=== PATIENT | female | born 1945 | race Caucasian/White ===

== ENCOUNTER 2016-10-11 12:27 | Emergency (ER) | payer MEDICAID ==
[~2016-10-11] VITALS: Ht 154.9 cm; Wt 61.5 kg
[~2016-10-11 12:27] MED LIST: ASPI81TA3; BENA20TA48 PO; CALC-68; HYD25 PO; IBUP400T22 PO; LORA-932; METH10TA5 PO; METO50TA16 PO; PRAV20TA63 PO; TRAM50TA2 PO
[2016-10-11 12:43] VITALS: Ht 154.9 cm; Wt 61.5 kg
[2016-10-11] MEDS ORDERED: SOD CHLORIDE 0.9% 1,000 ML IV STA (13:27)
[2016-10-11] MEDS ORDERED: ENALAPRILAT 1.25 MG INJ IV ONE (13:30)
[2016-10-11] MEDS ORDERED: AMLODIPINE 5 MG TAB PO ONE (13:30)
--- NOTE | 2016-10-11 14:16 | ERD ---
ER Documentation Chief Complaint Date/Time DATE: 10/11/16 TIME: 14:08 Chief Complaint INCREASED BP HPI 71-year-old woman with a history of hypertension brought in by EMS after referral from PMD for recent increased blood pressure despite using her antihypertensives as prescribed. She uses 2.5 mg amlodipine daily and her physician recommended increasing the dose to 10 mg daily, although because today 's EKG at the facility revealed a right bundle branch block he sent her here to rule out other end-organ pathology. An EKG performed 2 years ago was unremarkable. Patient is currently asymptomatic and was also asymptomatic at the doctor's office, per her primary care physician who I spoke to. She denies chest pain or shortness of breath, no fevers or chills, no dysuria or abdominal pain, no vomiting or diarrhea. Patient was transported here by EMS without further complications. ROS All systems reviewed and are negative except as per history of present illness. Medications Home Meds Active Scripts Amlodipine Besylate* (Amlodipine Besylate*) 10 Mg Tablet, 10 MG PO DAILY, #30 TAB Prov:EDWINA KHANNA MD 10/11/16 Reported Medications Lisinopril* (Lisinopril*) 40 Mg Tablet, 40 MG PO DAILY, #30 TAB 10/11/16 Amlodipine Besylate* (Amlodipine Besylate*) 2.5 Mg Tablet, 2.5 MG PO DAILY, #30 TAB 10/11/16 Alendronate Sodium* (Fosamax*) 70 Mg Tablet, 70 MG PO Q7D, #4 TAB 10/11/16 Hydrochlorothiazide* (Hydrochlorothiazide*) 25 Mg Tab, 25 MG PO DAILY, #30 TAB 05/15/15 Pravastatin Sodium* (Pravastatin Sodium*) 20 Mg Tablet, 20 MG PO HS, TAB 05/15/15 Metoprolol Succinate* (Toprol XL*) 50 Mg Tab.er.24h, 50 MG PO BID, #30 TAB 05/15/15 Aspirin (Aspirin) 81 Mg Chew 04/27/14 Discontinued Reported Medications Methimazole* (Methimazole*) 10 Mg Tablet, 20 MG PO DAILY, TAB 05/15/15 Benazepril Hcl* (Benazepril Hcl*) 20 Mg Tablet, 20 MG PO DAILY, #30 TAB 05/15/15 Calcium Carb-Vit D3-Minerals (Calcium + D & Minerals Chew) 1 Each Tab.chew 04/27/14 Loratadine (Allergy) 10 Mg Tablet 04/27/14 Discontinued Scripts Tramadol HCl (Tramadol HCl) 50 Mg Tablet, 50 MG PO Q4 Y for PAIN, #20 TAB Prov:JOSE UGALDE MD 04/28/15 Ibuprofen* (Motrin*) 400 Mg Tab, 400 MG PO Q6H Y for PAIN, #20 TAB Prov:JOSE UGALDE MD 04/28/15 Allergies Allergies: Coded Allergies: Penicillins (Verified Allergy, Unknown, 10/11/16) PMhx/Soc Hypertension, gastritis History of Surgery: Yes (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) Anesthesia Reaction: No Hx Neurological Disorder: No Hx Respiratory Disorders: No Hx Cardiac Disorders: Yes (htn, high cholesterol) Hx Psychiatric Problems: No Hx Miscellaneous Medical Probl: Yes (thyroid) Hx Alcohol Use: No Hx Substance Use: No Hx Tobacco Use: No FmHx Family History: diabetes Physical Exam Vitals Vital Signs Date Time Temp Pulse Resp B/P Pulse Ox O2 Delivery O2 Flow Rate FiO2 10/11/16 15:37 55 16 166/61 100 Room Air 10/11/16 12:43 98.0 63 18 226/88 98 Physical Exam GENERAL: Well-developed, well-nourished, well-hydrated, in no apparent distress , looks nontoxic in appearance HEENT: Moist mucous membranes, pink conjunctiva, no cervical spine tenderness or step-off deformities, no goiter, no jaundice or icterus, extraocular movements intact without pain. No submandibular induration, and no pharyngeal erythema NEURO: Alert and oriented 3, cranial nerves II through XII intact bilaterally, pupils equal round reactive to light, no focal deficits or facial asymmetry, sensation intact distally Strength 5/5 in upper and lower extremities bilaterally CARDIAC: Regular rate and rhythm, no murmurs rubs or gallops LUNGS: Clear bilaterally no wheezing crackles or stridor ABDOMEN: Soft nontender, no guarding, no rigidity, no rebound, no psoas sign no obturator sign. Normoactive bowel sounds SKIN: Warm and dry to touch, no abrasions, contusions, or hematomas, no lacerations, no ecchymosis, no target lesions, and without ulcers EXTREMITIES: No clubbing cyanosis or edema, calves are bilaterally symmetrical, no Homans sign, no popliteal cord sign. Distal pulses equal and bilateral PSYCH: Normal affect without agitation or irritability Result Diagram: 10/11/16 1503 10/11/16 1503 Results 24 hrs Laboratory Tests Test 10/11/16 15:03 White Blood Count 5.510^3/ul Red Blood Count 4.4110^6/ul Hemoglobin 13.5g/dl Hematocrit 37.1% Mean Corpuscular Volume 84.1fl Mean Corpuscular Hemoglobin 30.6pg Mean Corpuscular Hemoglobin Concent 36.4g/dl Red Cell Distribution Width 11.6% Platelet Count 67534^3/UL Mean Platelet Volume 10.0fl Neutrophils % 58.3% Lymphocytes % 29.0% Monocytes % 10.3% Eosinophils % 1.8% Basophils % 0.4% Nucleated Red Blood Cells % 0.0/100WBC Neutrophils # 3.210^3/ul Lymphocytes # 1.610^3/ul Monocytes # 0.610^3/ul Eosinophils # 0.110^3/ul Basophils # 0.010^3/ul Nucleated Red Blood Cells # 0.010^3/ul Urine Color LT. YELLOW Urine Clarity CLEAR Urine pH 7.5 Urine Specific [place] 1.010 Urine Ketones NEGATIVE Urine Nitrite NEGATIVE Urine Bilirubin NEGATIVE Urine Urobilinogen 0.2 E.U./dL Urine Leukocyte Esterase TRACE Urine Microscopic RBC 5-10/HPF Urine Microscopic WBC 0-2/HPF Urine Transitional Epithelial Cells OCCASIONAL Urine Hemoglobin 1+ Urine Glucose NEGATIVE% Urine Total Protein NEGATIVE Sodium Level 135mmol/L Potassium Level 4.0mmol/L Chloride Level 96mmol/L Carbon Dioxide Level 30mmol/L Anion Gap 13 Blood Urea Nitrogen 13mg/dl Creatinine 0.56mg/dl Glucose Level 108mg/dl Calcium Level 9.3mg/dl Total Bilirubin 0.3mg/dl Direct Bilirubin 0.00mg/dl Indirect Bilirubin 0.3mg/dl Aspartate Amino Transf (AST/SGOT) 35IU/L Alanine Aminotransferase (ALT/SGPT) 42IU/L Alkaline Phosphatase 95IU/L Troponin I < 0.012ng/ml Total Protein 7.9g/dl Albumin 4.9g/dl Globulin 3.00g/dl Albumin/Globulin Ratio 1.63 Lipase 116U/L Current Medications Medications (Trade) Dose Ordered Sig/Yola Route PRN Reason Start Time Stop Time Status Last Admin Dose Admin Sodium Chloride (NS) 1,000 ml @ 1,000 mls/hr Q1H STAT IV 10/11/16 13:27 10/11/16 14:26 DC 10/11/16 15:24 Enalaprilat (Vasotec Iv) 1.25 mg ONCE ONCE IV 10/11/16 13:30 10/11/16 13:31 DC 10/11/16 15:25 Amlodipine Besylate (Norvasc) 5 mg ONCE ONCE PO 10/11/16 13:30 10/11/16 13:31 DC 10/11/16 15:30 Procedures/MDM IV line was established patient was placed on telemetry monitor rhythm strip revealed a sinus rhythm at about 90 bpm with upright P and T waves. Patient was afebrile. EKG performed at the facility revealed a sinus bradycardia at 53 bpm, normal axis with a right bundle branch block and a QRS duration of 142 ms there is also first-degree atrial ventricular block with a SC interval 208 ms. EKG performed here in our ER reveals a sinus bradycardia 58 bpm, normal axis, with temporary right bundle branch block which converts to a narrow complex rhythm, no concerning ST elevations or depressions noted. EKG #2 performed about 3 hours after the first ED EKG revealed a sinus bradycardia 57 bpm, normal axis, and a right bundle branch block with a first- degree atrial ventricular block. No concerning ST elevations or depressions noted. Unremarkable. One view chest x-ray performed, read by me revealed sternotomy wires, no acute infiltrates, no pneumothorax and a normal mediastinum. Patient was extremely hypertensive initially and treated here with 1 L normal saline intravenously, enalapril 1.25 mg IV, and amlodipine 5 mg p.o. with good effect. CBC was unremarkable, electrolytes normal, liver function tests normal, troponin was negative. Urine analysis was negative for infection. Critical Care: Time: 32 minutes, this was time separate from other procedures. Treatments/Evaluations: Close monitoring and treatment of unstable vital signs, cardiorespiratory, and neurologic status, while maintaining tight balance of fluid, respiratory, and cardiac interventions. Patient is asymptomatic and ED workup was unremarkable. She has no signs, symptoms, or lab findings to support endorgan damage. She will be managed as an outpatient by her PMD who has close follow-up with her and I will increase her amlodipine to 10 mg daily. Differential diagnoses considered, included but not limited to acute coronary syndrome, pulmonary embolism, aortic dissection, abdominal aortic aneurysm, sepsis, stroke, meningitis, encephalitis, pneumonia, appendicitis, cholecystitis , bowel obstruction, pyelonephritis, nephrolithiasis, cystitis, as well as metabolic, hematologic, and electrolyte abnormalities. As well as abscess, cellulitis, fractures, and dislocations. Patient feels much better at this time, and vital signs are normal, symptoms have improved. I did give strict instructions to return to the ED if symptoms continue or worsen, patient will otherwise follow-up with primary care physician. Patient understood instructions and agreed to plan. Disclaimer: Inadvertent spelling or grammatical errors are likely due to EHR/ dictation software use and do not reflect on the overall quality of patient care. Departure Diagnosis: Primary Impression: Hypertensive urgency Additional Impression: Right bundle branch block Condition: Good EDWINA KHANNA MD Oct 11, 2016 14:16
--- NOTE | 2016-10-11 15:03 | RADRPT ---
PROCEDURE: XR Chest. CLINICAL INDICATION: Abdominal Pain TECHNIQUE: Single frontal view of the chest was obtained. COMPARISON: Chest x-ray from 05/05/2014 FINDINGS: Sternotomy wires and clips consistent with CABG are again noted. There is stable mild cardiomegaly. The aortic arch is calcified. The lungs are clear. There is no significant pleural effusion or pneumothorax. IMPRESSION: Stable mild cardiomegaly status post CABG. Aortic atherosclerosis. RPTAT: EE Physician Sai Date Time Electronically viewed and signed by Giuseppe Prasad Physician on 10/11/2016 15:03 /
[2016-10-11] MEDS ORDERED: ALEN70TA30 PO (15:04)
[2016-10-11] MEDS ORDERED: AMLO2.5T78 PO (15:04)
[2016-10-11] MEDS ORDERED: LISI40TA9 PO (15:05)
[2016-10-11 15:12] LABS: ADD SCAN DIFF NO
[2016-10-11 15:16] LABS: BASOPHILS % 0.4 % (0.0-2.0); EOSINOPHILS # 0.1 10^3/ul (0.0-0.5); EOSINOPHILS % 1.8 % (0.0-7.0); HEMATOCRIT 37.1 % (37.0-47.0); HEMOGLOBIN 13.5 g/dl (12.0-16.0); LYMPHOCYTES # 1.6 10^3/ul (0.8-2.9); MEAN CORPUSCULAR HEMOGLOBIN 30.6 pg (29.0-33.0); MEAN CORPUSCULAR HGB CONC 36.4 g/dl (32.0-37.0); MEAN CORPUSCULAR VOLUME 84.1 fl (82.0-101.0); MONOCYTE # 0.6 10^3/ul (0.3-0.9); MONOCYTES % 10.3 % (0.0-11.0); NEUTROPHIL # 3.2 10^3/ul (1.6-7.5); NEUTROPHILS % 58.3 % (39.0-77.0); PLATELET COUNT 293 10^3/UL (140-415); RED BLOOD COUNT 4.41 10^6/ul (4.20-5.40); RED CELL DISTRIBUTION WIDTH 11.6 % (11.5-14.5); WHITE BLOOD COUNT 5.5 10^3/ul (4.8-10.8)
[2016-10-11 15:28] LABS: ADD UMIC YES; URINE BILIRUBIN (Dip) NEGATIVE (NEGATIVE); URINE BLOOD (Dip) 1+ (NEGATIVE); URINE COLOR LT. YELLOW (YELLOW); URINE GLUCOSE (Dip) NEGATIVE (NEGATIVE); URINE KETONES (Dip) NEGATIVE (NEGATIVE); URINE LEUKOCYTE ESTERASE (Dip) TRACE (NEGATIVE); URINE NITRITE (Dip) NEGATIVE (NEGATIVE); URINE TOTAL PROTEIN (Dip) NEGATIVE (NEGATIVE); URINE UROBILINOGEN (Dip) 0.2 E.U./dL (0.1-1.0)
[2016-10-11 15:32] LABS: ALANINE AMINOTRANSFERASE 42 IU/L (13-69); ALBUMIN 4.9 g/dl (3.3-4.9); ALBUMIN/GLOBULIN RATIO 1.63; ALKALINE PHOSPHATASE 95 IU/L (42-121); ANION GAP 13 (8-16); ASPARTATE AMINO TRANSFERASE 35 IU/L (15-46); BILIRUBIN,INDIRECT 0.3 mg/dl (0-1.1); BILIRUBIN,TOTAL 0.3 mg/dl (0.2-1.3); BLOOD UREA NITROGEN 13 mg/dl (7-20); CALCIUM 9.3 mg/dl (8.4-10.2); CARBON DIOXIDE 30 mmol/L (21-31); CHLORIDE 96 mmol/L (97-110); CREATININE 0.56 mg/dl (0.44-1.00); GLUCOSE 108 mg/dl (70-220); SODIUM 135 mmol/L (135-144); TOTAL PROTEIN 7.9 g/dl (6.1-8.1)
[2016-10-11 15:37] VITALS: BP 166/61; PULSE 55; RESP 16
[2016-10-11 15:46] LABS: TROPONIN-I < 0.012 ng/ml (0.00-0.12)
[2016-10-11 15:55] LABS: TRANSITIONAL EPI CELLS,URINE OCCASIONAL
[2016-10-11] MEDS ORDERED: AMLO-147 PO (16:17)
== END 2016-10-11 16:45 | disposition home or self-care (01) ==
LOC: E/R 12:27
DX: I16.0 Hypertensive urgency (principal); I45.10 Unspecified right bundle-branch block; I25.810 Atherosclerosis of coronary artery bypass graft(s) without angina pectoris; Z79.82 Long term (current) use of aspirin
CPT/HCPCS: 36415; 71010; 80053; 81001; 83690; 84484; 85025; 93005; 96361; 96374; J7030; Z7502; Z7610

== ENCOUNTER 2018-03-06 09:45 | Emergency (ER) | END 2018-03-06 14:12 | disposition home or self-care (01) ==

== ENCOUNTER 2018-03-08 09:24 | Emergency (ER) | END 2018-03-08 10:35 | disposition home or self-care (01) ==

== ENCOUNTER 2018-03-22 11:42 | Emergency (ER) | END 2018-03-22 12:25 | disposition home or self-care (01) ==

== ENCOUNTER 2018-08-27 12:21 | Emergency (ER) | payer MEDICAID ==
[~2018-08-27] VITALS: Wt 60.0 kg
[~2018-08-27 12:21] MED LIST changes: +ACET325T33 PO; +ALEN70TA5 PO; +AMLO-147 PO; +AMLO2.5T78 PO; +ASPI-831; -ASPI81TA3; +BEN25 PO; -BENA20TA48 PO; -CALC-68; +CETI5TAB8 PO; +ELIM TOP; -HYD25 PO; +HYDR-3029 PO; +HYDR25TA6 PO; -IBUP400T22 PO; +LISI40TA3 PO; -LORA-932; +LORA10CA9 PO; +MED4DP PO; -METH10TA5 PO; +METO-319 PO; -METO50TA16 PO; -TRAM50TA2 PO
[2018-08-27 12:23] VITALS: BP 156/70; PULSE 62; RESP 18
--- NOTE | 2018-08-27 12:58 | ERD ---
ER Documentation Chief Complaint Chief Complaint COUGH X 10 DAYS HPI 73-year-old female, presents to the emergency department, complaining of 10 days with worsening of cough, associated with productive greenish sputum, subjective fever and general malaise. The patient has been taking [id number] medication without improvement of the symptoms. The patient denies chest pain, no shortness of breath, no leg edema. ROS All systems reviewed and are negative except as per history of present illness. Medications Home Meds Active Scripts Inhaler, Assist Devices (Compact Space Chamber) 1 Each Spacer, EACH MC, #1 Prov:EVELYN HARPER MD 08/27/18 Albuterol Sulfate* (Proair HFA*) 8.5 Gm Hfa.aer.ad, 2 PUFF INH Q4, #1 INHALER Prov:EVELYN HARPER MD 08/27/18 Guaifenesin/Codeine Phosphate (Codeine-Guaifen 10-100 mg/5 ml) 120 Ml Liquid, 5 ML PO QHS PRN for COUGH for 5 Days, #60 ML Prov:EVELYN HARPER MD 08/27/18 Doxycycline Hyclate* (Doxycycline Hyclate*) 100 Mg Tablet.dr, 100 MG PO BID for 7 Days, TAB Prov:EVELYN HARPER MD 08/27/18 Acetaminophen* (Tylenol*) 325 Mg Tablet, 2 TAB PO Q8 PRN for PAIN AND OR ELEVATED TEMP, #20 TAB Prov:EVELYN HARPER MD 06/21/18 Hydroxyzine Hcl* (Hydroxyzine Hcl*) 10 Mg Tablet, 10 MG PO Q6H PRN for ITCHING, #30 TAB Prov:SB ROJAS PA-C 03/22/18 Permethrin* (Elimite*) 5% Cr, 1 APPLIC TOP ONCE, #1 TUB Prov:SB ROJAS PA-C 03/22/18 Diphenhydramine Hcl* (Benadryl*) 25 Mg Cap, 25 MG PO Q6 PRN for ITCHING/RASH, # 30 TAB Prov:MAN REEVES 03/08/18 Loratadine (Loratadine) 10 Mg Capsule, 10 MG PO DAILY, #30 CAP Prov:PASILAMAN MARX F 03/08/18 Methylprednisolone* (Medrol* DOSE PACK) 4 Mg/Dose-Pack Tab.ds.pk, 4 MG PO . DIRECTED, #1 PACKET Prov:MAN REEVES 03/08/18 Permethrin* (Elimite*) 5% Cr, 1 APPLIC TOP ONCE, #2 TUB Prov:MAN REEVES 03/08/18 Cetirizine Hcl* (Cetirizine Hcl*) 5 Mg Tab.chew, 5 MG PO DAILY PRN for ITCHING, #30 TAB Prov:STEVENPANCHO 03/06/18 Amlodipine Besylate* (Amlodipine Besylate*) 10 Mg Tablet, 10 MG PO DAILY, #30 TAB Prov:EDWINA KHANNA MD 10/11/16 Reported Medications Lisinopril* (Lisinopril*) 40 Mg Tablet, 40 MG PO DAILY, #30 TAB 10/11/16 Amlodipine Besylate* (Amlodipine Besylate*) 2.5 Mg Tablet, 2.5 MG PO DAILY, #30 TAB 10/11/16 Alendronate Sodium* (Fosamax*) 70 Mg Tablet, 70 MG PO Q7D, #4 TAB 10/11/16 Hydrochlorothiazide* (Hydrochlorothiazide*) 25 Mg Tab, 25 MG PO DAILY, #30 TAB 05/15/15 Pravastatin Sodium* (Pravastatin Sodium*) 20 Mg Tablet, 20 MG PO HS, TAB 05/15/15 Metoprolol Succinate* (Toprol XL*) 50 Mg Tab.er.24h, 50 MG PO BID, #30 TAB 05/15/15 Aspirin (Aspirin) 81 Mg Chew 04/27/14 Allergies Allergies: Coded Allergies: Penicillins (Verified Allergy, Unknown, 03/22/18) PMhx/Soc History of Surgery: Yes (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) Anesthesia Reaction: No Hx Neurological Disorder: Yes (cva) Hx Respiratory Disorders: No Hx Cardiac Disorders: Yes (htn, high cholesterol) Hx Psychiatric Problems: No Hx Miscellaneous Medical Probl: Yes (thyroid) Hx Alcohol Use: No Hx Substance Use: No Hx Tobacco Use: No FmHx Family History: diabetes; No coronary disease Physical Exam Vitals Vital Signs Date Temp Pulse Resp B/P (MAP) Pulse Ox O2 O2 Flow FiO2 Time Delivery Rate 08/27/18 97.5 62 18 156/70 99 12:23 (98) Physical Exam Const: Mild distress due to cough Head: Atraumatic Eyes: Normal Conjunctiva ENT: Erythematous oropharynx, normal External Ears, Nose and Mouth. Neck: Full range of motion. No meningismus. Resp: Rhonchi to auscultation bilaterally Cardio: Regular rate and rhythm, no murmurs Abd: Soft, non tender, non distended. Normal bowel sounds Skin: No petechiae or rashes Back: No midline or flank tenderness Ext: No cyanosis, or edema Neur: Awake and alert Psych: Normal Mood and Affect Procedures/MDM At the time of discharge, patient with nontoxic appearance, vital signs stable, no respiratory distress. Differential diagnosis include but not limited to: upper vs lower respiratory infection bacterial/viral/fungal. Asthma, COPD, pneumonitis, allergies, GERD. Less likely pulmonary embolism, cardiac related or malignancy, but still is a possibility. Physical examination and clinical presentation consistent most likely with viral infection with early superimposed bacterial infection. During the ED course the patient remained stable, no new complaints. Treatment options and clinical impression discussed with the patient who agrees with management. The patient is stable to be treated outpatient and will be discharged home. Some side effects of prescribed medications (headache, rash, nausea, vomiting, diarrhea, interactions with other medications) were reviewed. The patient needs to follow up with the primary care provider in the next 48h. If symptoms persist, worsen or new symptoms develop, then patient should return to the ED immediately. Disclaimer: Inadvertent spelling and grammatical errors are likely due to EHR/dictation software use and do not reflect on the overall quality of patient care. Also, please note that the electronic time recorded on this note does not necessarily reflect the actual time of the patient encounter. Departure Diagnosis: Primary Impression: Abnormal respiratory sounds Additional Impression: Cough Condition: Stable Additional Instructions: Muchas yojana por [facility] para james servicio. Esperamos que en jaems visita a la stalin de emergencia james problema medico haya sido solucionado y que se sienta mucho mejor. Para estar seguros que james mejoria sigue en proceso, le pedimos el favor de hacer ozzie gaudencio de seguimiento medico con james doctor primario en los proximos 2-4 han. Lleve con usted estos documentos y las medicinas recetadas. Si malina sintomas empeoran, NO SE ESPERE, por favor regrese a stalin de emergencia INMEDIATAMENTE. En bird que usted no tenga un mdico de atencin primaria: Llame al mdico o clnica comunitaria de referencia que aparece abajo juliet las horas de consultorio para hacer ozzie gaudencio para que le vean. CLINICAS: [facility] [phone] [facility] [phone] [id number] [facility] [id number] [facility] [phone] [facility] [phone] [id number] [facility]. [phone] EVELYN EPPS MD Aug 27, 2018 12:58
[2018-08-27] MEDS ORDERED: DOXY100T20 PO (13:35)
[2018-08-27] MEDS ORDERED: ALBU8.5H8 INH (13:35)
[2018-08-27] MEDS ORDERED: GUAI120L41 PO (13:35)
[2018-08-27] MEDS ORDERED: INHA-3 MC (13:35)
== END 2018-08-27 13:59 | disposition home or self-care (01) ==
LOC: FTE 12:21
DX: R09.89 Other specified symptoms and signs involving the circulatory and respiratory systems (principal); I10 Essential (primary) hypertension; Z79.82 Long term (current) use of aspirin; Z86.73 Personal history of transient ischemic attack (TIA), and cerebral infarction without residual deficits
CPT/HCPCS: 99283

== ENCOUNTER 2018-09-26 10:34 | Emergency (ER) | payer MEDICAID ==
[~2018-09-26] VITALS: Ht 144.8 cm; Wt 60.6 kg
[~2018-09-26 10:34] MED LIST changes: +ALBU8.5H8 INH; +DOXY100T20 PO; +GUAI120L41 PO; +INHA-3 MC
[2018-09-26 10:38] VITALS: BP 118/58; PULSE 58; RESP 19; Ht 144.8 cm; Wt 60.6 kg
[2018-09-26] MEDS ORDERED: KETOROLAC 60 MG INJ IM STA (11:02)
[2018-09-26] MEDS ORDERED: DEXAMETHASONE 10 MG/ML 1 ML INJ IM ONE (11:30)
[2018-09-26] MEDS ORDERED: TRAM50TA2 PO (12:24)
[2018-09-26] MEDS ORDERED: NAPR-985 PO (12:24)
[2018-09-26] MEDS ORDERED: MED4DP PO (12:24)
--- NOTE | 2018-09-26 12:56 | ERD ---
ER Documentation Chief Complaint Chief Complaint BACK PAIN X 15 DAYS HPI 73-year-old female presents with back pain x15 days. Denies any acute traumatic injuries. Patient states that she has sharp stabbing pain running down bilateral posterior legs. Denies any numbness or tingling. Has not taken medications today for symptoms. Denies abdominal pain. Denies dysuria. Denies other medical problems. Allergy to penicillin. Surgical history denies. Social history denies ROS All systems reviewed and are negative except as per history of present illness. Medications Home Meds Active Scripts Naproxen* (Naprosyn*) 500 Mg Tablet, 500 MG PO BID PRN for PAIN AND/OR INFLAMMATION, #30 TAB Prov:SB ROJAS PA-C 09/26/18 Tramadol HCl (Tramadol HCl) 50 Mg Tablet, 50 MG PO Q4 PRN for PAIN, #20 TAB Prov:SB ROJAS PA-C 09/26/18 Methylprednisolone* (Medrol* DOSE PACK) 4 Mg/Dose-Pack Tab.ds.pk, 4 MG PO . DIRECTED, #1 PACKET Prov:SB ROJAS PA-C 09/26/18 Inhaler, Assist Devices (Compact Space Chamber) 1 Each Spacer, EACH MC, #1 Prov:EVELYN HARPER MD 08/27/18 Albuterol Sulfate* (Proair HFA*) 8.5 Gm Hfa.aer.ad, 2 PUFF INH Q4, #1 INHALER Prov:EVELYN HARPER MD 08/27/18 Guaifenesin/Codeine Phosphate (Codeine-Guaifen 10-100 mg/5 ml) 120 Ml Liquid, 5 ML PO QHS PRN for COUGH for 5 Days, #60 ML Prov:EVELYN HARPER MD 08/27/18 Doxycycline Hyclate* (Doxycycline Hyclate*) 100 Mg Tablet.dr, 100 MG PO BID for 7 Days, TAB Prov:EVELYN HARPER MD 08/27/18 Acetaminophen* (Tylenol*) 325 Mg Tablet, 2 TAB PO Q8 PRN for PAIN AND OR ELEVATED TEMP, #20 TAB Prov:EVELYN HARPER MD 06/21/18 Hydroxyzine Hcl* (Hydroxyzine Hcl*) 10 Mg Tablet, 10 MG PO Q6H PRN for ITCHING, #30 TAB Prov:SB ROJAS PA-C 03/22/18 Permethrin* (Elimite*) 5% Cr, 1 APPLIC TOP ONCE, #1 TUB Prov:SB ROJAS PA-C 03/22/18 Diphenhydramine Hcl* (Benadryl*) 25 Mg Cap, 25 MG PO Q6 PRN for ITCHING/RASH, #3 0 TAB Prov:PASILABANROGELIOAR F 03/08/18 Loratadine (Loratadine) 10 Mg Capsule, 10 MG PO DAILY, #30 CAP Prov:PASILABANROGELIOAR F 03/08/18 Methylprednisolone* (Medrol* DOSE PACK) 4 Mg/Dose-Pack Tab.ds.pk, 4 MG PO . DIRECTED, #1 PACKET Prov:PASILABAN,ROGELIOAR F 03/08/18 Permethrin* (Elimite*) 5% Cr, 1 APPLIC TOP ONCE, #2 TUB Prov:PASILABAN,ROGELIOAR F 03/08/18 Cetirizine Hcl* (Cetirizine Hcl*) 5 Mg Tab.chew, 5 MG PO DAILY PRN for ITCHING, #30 TAB Prov:PANCHO HARRIS DO 03/06/18 Amlodipine Besylate* (Amlodipine Besylate*) 10 Mg Tablet, 10 MG PO DAILY, #30 TAB Prov:EDWINA KHANNA MD 10/11/16 Reported Medications Lisinopril* (Lisinopril*) 40 Mg Tablet, 40 MG PO DAILY, #30 TAB 10/11/16 Amlodipine Besylate* (Amlodipine Besylate*) 2.5 Mg Tablet, 2.5 MG PO DAILY, #30 TAB 10/11/16 Alendronate Sodium* (Fosamax*) 70 Mg Tablet, 70 MG PO Q7D, #4 TAB 10/11/16 Hydrochlorothiazide* (Hydrochlorothiazide*) 25 Mg Tab, 25 MG PO DAILY, #30 TAB 05/15/15 Pravastatin Sodium* (Pravastatin Sodium*) 20 Mg Tablet, 20 MG PO HS, TAB 05/15/15 Metoprolol Succinate* (Toprol XL*) 50 Mg Tab.er.24h, 50 MG PO BID, #30 TAB 05/15/15 Aspirin (Aspirin) 81 Mg Chew 04/27/14 Allergies Allergies: Coded Allergies: Penicillins (Verified Allergy, Unknown, 03/22/18) PMhx/Soc History of Surgery: Yes (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) Anesthesia Reaction: No Hx Neurological Disorder: Yes (cva) Hx Respiratory Disorders: No Hx Cardiac Disorders: Yes (htn, high cholesterol) Hx Psychiatric Problems: No Hx Miscellaneous Medical Probl: Yes (thyroid) Hx Alcohol Use: No Hx Substance Use: No Hx Tobacco Use: No Physical Exam Vitals Vital Signs Date Temp Pulse Resp B/P (MAP) Pulse Ox O2 O2 Flow FiO2 Time Delivery Rate 09/26/18 99.0 58 19 118/58 99 10:38 (78) Physical Exam Const: No acute distress Head: Atraumatic Eyes: Normal Conjunctiva ENT: Normal External Ears, Nose and Mouth. Neck: Full range of motion. No meningismus. Resp: Clear to auscultation bilaterally Cardio: Regular rate and rhythm, no murmurs Abd: Soft, non tender, non distended. Normal bowel sounds Skin: No petechiae or rashes Back: No midline or flank tenderness Ext: No cyanosis, or edema Neur: Awake and alert Psych: Normal Mood and Affect Results 24 hrs Laboratory Tests Test 09/26/18 11:25 Bedside Urine pH (LAB) 7.0 Bedside Urine Protein (LAB) Negative Bedside Urine Glucose (UA) Negative Bedside Urine Ketones (LAB) Negative Bedside Urine Blood Negative Bedside Urine Nitrite (LAB) Negative Bedside Urine Leukocyte Esterase (L Trace Current Medications Medications Dose Sig/Yola Start Time Status Last (Trade) Ordered Route PRN Stop Time Admin Dose Reason Admin 10 mg ONCE ONCE 09/26/18 DC 09/26/18 Dexamethasone IM 11:30 11:08 (Decadron) 09/26/18 11:31 Ketorolac 60 mg ONCE STAT 09/26/18 DC 09/26/18 Tromethamine IM 11:02 11:09 (Toradol) 09/26/18 11:03 Procedures/MDM DIAGNOSTIC IMAGING REPORT Patient: TRACEE WAGGONER : 1945 Age: 73 Sex: F MR #: [id number] DOS: 09/26/18 1102 Ordering MD: MITCHELL ROJAS PA-C Location: [facility] Room/Bed: PROCEDURE: CT lumbar spine without contrast. CLINICAL INDICATION: Back pain TECHNIQUE: CT of the lumbar spine without contrast was performed on a multidetector CT scanner, with multiplanar reformats. One or more of the following dose reduction techniques were used: Automated exposure control, adjustment in mA and / or kV according to patient size, use of iterative reconstructive technique. CTDIvol = 12 mGy and DLP = 275 mGy-cm. DICOM images are available. COMPARISON: None available. FINDINGS: There is generalized osteopenia. There is a chronic moderate T12 compression fracture with mild retropulsion deformity with mild associated central canal narrowing. No acute fracture is identified There is preservation of the lordosis of the lumbar spine. There is mild dextroconvex lumbar scoliosis. No gross spondylolisthesis is seen. The lumbar vertebral bodies are maintained in height with anterior osteophytes seen at multiple levels. The disc spaces are grossly maintained in height. Additional findings by levels: T12-L1: No significant disc bulge/herniation, central canal stenosis or foraminal narrowing identified. L1-L2: Posterior disk/osteophyte and mild facet arthropathy with mild central canal stenosis and mild bilateral foraminal narrowing identified. L2-L3: Posterior disc bulging and mild facet arthropathy with ligamentum flavum hypertrophy. Moderate central canal stenosis and mild bilateral foraminal narrowing identified. L3-L4: Posterior disc bulging and moderate facet arthropathy with ligamentum flavum hypertrophy. Severe central canal stenosis with lateral recess narrowing, and mild-moderate bilateral foraminal narrowing identified. L4-L5: Posterior disc bulging with suggestion of central disc protrusion measuring up to 4 mm and mild facet arthropathy with ligamentum flavum hypertrophy. Moderate central canal stenosis with lateral recess narrowing, mild right, mild-moderate left foraminal narrowing identified. L5-S1: Posterior disc bulging and mild moderate facet arthropathy without significant central canal stenosis identified. Mild bilateral foraminal narrowing identified. IMPRESSION: 1. Moderate chronic-appearing T12 compression fracture with associated mild retropulsion deformity/mild central canal narrowing. 2. No acute fracture identified. 3. Lumbar spondylosis/degenerative enthesopathy as detailed above. 4. Mild dextroconvex lumbar scoliosis. 5. Osteopenia. ER Course: Toradol and Decadron IM given the ED. MDM: 73-year-old female presents with back pain. I have low suspicion for acute fracture or dislocation. Patient has a chronic compression fracture seen. Patient has pain associated with nerve impingement. I have low suspicion for discitis, epidural abscess or cauda equina. Patient is discharged with supportive medications and told to follow-up with primary care. Patient is told symptoms change or worsen to return immediately to the ER. All questions answered at discharge Departure Diagnosis: Primary Impression: Back pain Condition: Stable Patient Instructions: Back Pain W/ Sciatica Referrals: [facility] (PCP) [facility] YOU HAVE RECEIVED A MEDICAL SCREENING EXAM AND THE RESULTS INDICATE THAT YOU DO NOT HAVE A CONDITION THAT REQUIRES URGENT TREATMENT IN THE EMERGENCY DEPARTMENT. FURTHER EVALUATION AND TREATMENT OF YOUR CONDITION CAN WAIT UNTIL YOU ARE SEEN IN YOUR DOCTORS OFFICE WITHIN THE NEXT 1-2 DAYS. IT IS YOUR RESPONSIBILITY TO MAKE AN APPOINTMENT FOR FOLOW-UP CARE. IF YOU HAVE A PRIMARY DOCTOR --you should call your primary doctor and schedule an appointment IF YOU DO NOT HAVE A PRIMARY DOCTOR YOU CAN CALL OUR PHYSICIAN REFERRAL HOTLINE AT IF YOU CAN NOT AFFORD TO SEE A PHYSICIAN YOU CAN CHOSE FROM THE FOLLOWING [facility] [address] [facility] [facility] [address] [facility] [facility] [facility] [address] [facility] [facility] [address] [facility]. [facility] [address] [facility] [facility]. [address] [facility] Hours: Mon-Fri 9:00 AM - 5:00 PM Comments Patient evaluated with JOHN, agree with assessment and plan. SB Marrero PA-C September 26, 2018 12:56 PANCHO HARRIS DO September 30, 2018 09:54
== END 2018-09-26 13:02 | disposition home or self-care (01) ==
LOC: FTE 10:34
DX: M54.9 Dorsalgia, unspecified (principal); Z86.73 Personal history of transient ischemic attack (TIA), and cerebral infarction without residual deficits
CPT/HCPCS: 72131; 81003; 96372; J1100; J1885; Z7502